=== PATIENT | male | born 1980 | race African-American/Black ===

== ENCOUNTER 2017-06-03 11:45 | Emergency (ER) | payer OTHER ==
[~2017-06-03] VITALS: Ht 190.5 cm; Wt 100.0 kg
[2017-06-03] MEDS ORDERED: BUSPIRONE5 MG PO (12:00)
[2017-06-03] MEDS ORDERED: BENADRYL 25MG C25 MG PO (12:01)
[2017-06-03 12:07] LABS: HEMATOCRIT 43.5 % (39.0-50.0); HEMOGLOBIN 14.6 g/dl (14.0-18.0); IMMATURE GRANULOCYTES 0.4 % (0.0-1.0); MEAN CORPUSCULAR HGB 28.9 pG CALC (26.0-32.0); MEAN CORPUSCULAR HGB CONC 33.6 g/L CALC (32.0-36.0); NEUT# 3.19 thou/uL (1.82-7.42); RED BLOOD COUNT 5.06 mill/uL (4.70-6.10); RED CELL DISTRI WIDTH 13.2 % (11.5-15.5)
[2017-06-03 12:23] LABS: ALBUMIN 4.5 g/dL (3.2-5.0); ALKALINE PHOSPHATASE 112 u/l (38-126); ANION GAP 15 (6-22 (CALC)); BILIRUBIN, TOTAL 1.2 mg/dL (0.0-1.4); BUN 12 mg/dL (9-20); BUN/CREATININE RATIO 15 (12-20 (CALC)); CARBON DIOXIDE 27 mmol/l (22-30); CHLORIDE 102 mmol/l (95-108); CREATININE 0.8 mg/dL (0.7-1.3); GFR > 60 ML/MIN (>=60 (CALC)); GFR FOR AFR.AMER. > 60 ML/MIN (>=60 (CALC)); POTASSIUM 4.4 mmol/l (3.5-5.1); SGOT/AST 31 u/l (17-59); SGPT/ALT 39 u/l (21-72); SODIUM 140 mmol/l (137-146)
[2017-06-03 12:32] LABS: MYOGLOBIN 36 ng/mL (0 - 121)
[2017-06-03] MEDS ORDERED: NAPROSYN500 MG PO (13:36)
[2017-06-03 13:40] VITALS: BP 120/75
== END 2017-06-03 13:51 | disposition designated cancer center or children's hospital (05) | DRG 313 ==
LOC: ED 11:45
PROVIDERS: Emergency Medicine
DX: R07.89 Other chest pain (principal); J45.909 Unspecified asthma, uncomplicated